=== PATIENT | male | born 2000 | race Caucasian/White ===

== ENCOUNTER → 2021-08-18 | Day surgery (SDC) | payer BC, OTHER ==
[~2021-08-18] MED LIST: ACETAMINOPHEN 1000 MG/100 ML 100 ML IV ONE; ATROPINE SULFATE 1 MG/ML VIAL ONE; BUPIVACAINE 0.25% 30ML SDV ONE; DEXAMETHASONE SOD PHOS INJ 4 MG/ML SDV ONE; FENTANYL CITRATE/PF 100MCG/2 ML INJ ONE; HYDROCODONE/APAP 7.5MG-325MG 1 EA TAB ONE; HYDROMORPHONE 1MG/1ML INJ ONE; KETOROLAC TROMETHAMINE 30 MG/ML VIAL ONE; LIDOCAINE HCL 2% LOCAL INJ 5 ML SDV VIAL INJ ONE; ONDANSETRON HCL INJ 2MG/ML 2ML 2 MG/ML VIAL ONE; PHENYLEPHRINE HCL 1% 10 MG/ML VIAL ONE; POVIDONE IODINE 0.05% 0.05 % ML PO ONE; PROPOFOL IV EMULSION 10 MG/ML 20 ML VIAL ONE; ROCURONIUM BROMIDE 10 MG/ML 5ML VIAL IV ONE; SEVOFLURANE INHAL SOLN 250 ML PEN BTL ONE
[2021-08-18 14:35] VITALS: BP 111/52
== END | disposition home or self-care (01) ==
LOC: OR 09:38
PROVIDERS: ATTEND Specialist
DX: S42.022A Displaced fracture of shaft of left clavicle, initial encounter for closed fracture (principal); W00.0XXA Fall on same level due to ice and snow, initial encounter; Y93.23 Activity, snow (alpine) (downhill) skiing, snowboarding, sledding, tobogganing and snow tubing; Y99.8 Other external cause status; Z01.812 Encounter for preprocedural laboratory examination; Z20.822 Contact with and (suspected) exposure to COVID-19
CPT/HCPCS: 23515; 76000; C1713 ×3; J0131; J0461; J0690; J1100; J1170; J1885; J2001; J2370; J2405; J2704; J3010; U0002

== ENCOUNTER 2021-10-02 09:00 | Outpatient (RCR) | payer BC, OTHER | END 2021-10-19 | LOC: PT 09:00 | PROVIDERS: ATTEND Physician Assistant | DX: Z47.89 Encounter for other orthopedic aftercare (principal); S42.022D Displaced fracture of shaft of left clavicle, subsequent encounter for fracture with routine healing ==

== ENCOUNTER → 2023-02-15 | Day surgery (SDC) | payer BC, OTHER ==
[~2023-02-15] MED LIST changes: -ATROPINE SULFATE 1 MG/ML VIAL ONE; -BUPIVACAINE 0.25% 30ML SDV ONE; +BUPIVACAINE 0.5%/EPI 30 ML SDV INJ ONE; +BUPIVACAINE HCL 0.5% INJ 30 ML VIAL INJ ONE; -HYDROCODONE/APAP 7.5MG-325MG 1 EA TAB ONE; -HYDROMORPHONE 1MG/1ML INJ ONE; +LACTATED RINGER'S 1,000 ML ONE; +MAGNESIUM PO; +MIDAZOLAM HCL 2 MG/2 ML VIAL ONE; +MULTIVITAMINS1 EAC6 PO; -PHENYLEPHRINE HCL 1% 10 MG/ML VIAL ONE; +SUGAMMADEX SODIUM 200 MG/2 ML VIAL IV ONE; +VITAMIN C1000 MG PO
[2023-02-15 12:07] VITALS: TEMP 97.1
[2023-02-15 13:00] VITALS: BP 113/73; PULSE 66; RESP 16; O2SAT 98
== END | disposition home or self-care (01) ==
LOC: OR 10:34
PROVIDERS: ATTEND Specialist
DX: T84.84XA Pain due to internal orthopedic prosthetic devices, implants and grafts, initial encounter (principal); F98.8 Other specified behavioral and emotional disorders with onset usually occurring in childhood and adolescence; F17.290 Nicotine dependence, other tobacco product, uncomplicated; Y83.8 Other surgical procedures as the cause of abnormal reaction of the patient, or of later complication, without mention of misadventure at the time of the procedure
CPT/HCPCS: 20680; J0131; J0690; J1100; J1885; J2001; J2250; J2405; J2704; J3010; J7121; 76000